=== PATIENT | male | born 1980 | race Caucasian/White ===

== ENCOUNTER 2021-02-01 21:11 | Emergency (ER) | payer OTHER ==
[~2021-02-01 21:11] MED LIST: CEPHALEXIN500 MG PO; LODINE CAP 300300 MG PO
[2021-02-01 22:44] LABS: HEMOGLOBIN 13.6 gm/dl (14.0-17.5); RED BLOOD COUNT 4.64 M/UL (4.20-5.50); WHITE BLOOD COUNT 11.1 K/UL (4.5-11.0)
[2021-02-01 22:58] LABS: BUN/CREATININE RATIO 23 (0-10)
== END 2021-02-02 00:49 | disposition home or self-care (01) ==
LOC: ER1 21:11
PROVIDERS: Physician Assistant
DX: L03.115 Cellulitis of right lower limb (principal); F17.290 Nicotine dependence, other tobacco product, uncomplicated
CPT/HCPCS: 73564; 80053; 83605; 85025; 85652; 86140; 87040; 96374; 96375; 99283; J0696; J1885